=== PATIENT | female | born 1945 | race Caucasian/White ===

== ENCOUNTER 2022-05-09 05:45 | Day surgery (SDC) | payer OTHER ==
[~2022-05-09] VITALS: Ht 152.4 cm; Wt 53.5 kg
[~2022-05-09 05:45] MED LIST: LOSARTAN-HCTZ1 EAC2 PO; SIMVASTATIN5 MG; SYNTHROID112 MCG PO
[2022-05-09] MEDS ORDERED: POLY119PG PO (12:32)
[2022-05-09] MEDS ORDERED: NEURONTIN300 MG PO (12:32)
[2022-05-09] MEDS ORDERED: IBU800 MG PO (12:33)
== END 2022-05-09 17:40 | disposition home or self-care (01) ==
LOC: CIR.AMB 05:45 → U 05:45 → CIR.AMB 08:00 → SURH 08:00 → EDSTATUS 08:00 → SURH 11:00 → CIR.AMB 17:40
PROVIDERS: ATTEND Surgery
DX: K56.699 Other intestinal obstruction unspecified as to partial versus complete obstruction (principal); K42.0 Umbilical hernia with obstruction, without gangrene; K66.0 Peritoneal adhesions (postprocedural) (postinfection); Z88.5 Allergy status to narcotic agent; I10 Essential (primary) hypertension; E78.5 Hyperlipidemia, unspecified; E03.9 Hypothyroidism, unspecified; Z20.822 Contact with and (suspected) exposure to COVID-19